=== PATIENT | male | born 1955 | race Caucasian/White ===

== ENCOUNTER 2024-08-03 16:12 | Emergency (ER) | payer MEDICARE ==
[~2024-08-03] VITALS: Ht 172.7 cm; Wt 82.6 kg
[2024-08-03 16:28] VITALS: PULSE 76; RESP 17; TEMP 100.7; O2SAT 97
[2024-08-03 17:11] LABS: CORONAVIRUS COVID-19 AG NEGATIVE (NEGATIVE); INFLUENZA A AG NEGATIVE (NEGATIVE); INFLUENZA B AG NEGATIVE (NEGATIVE)
== END 2024-08-03 18:02 | disposition home or self-care (01) ==
LOC: ER 16:47
DX: R50.9 Fever, unspecified (principal); B34.9 Viral infection, unspecified; I10 Essential (primary) hypertension; E11.9 Type 2 diabetes mellitus without complications; Z11.52 Encounter for screening for COVID-19
CPT/HCPCS: 99282